=== PATIENT | female | born 1990 | race Caucasian/White ===

== ENCOUNTER 2023-08-08 11:15 | Outpatient (RCR) | payer OTHER, SELFPAY ==
--- NOTE | 2023-05-18 14:35 | OPREHPOC ---
Outpatient Therapy Plan of Care This is a Multidisciplinary Plan of Care that may contain components documented by all disciplines (PT, OT, and ST.) PT Problem 1 PT Problem #1 Knowledge Deficit PT Goal 1 Goal *indep with HEP * correct body mechanics with fitness activities PT Problem 2 PT Problem #2 Pain PT Goal 1 Goal 1* pain rating R knee at worst 2/10 2* pain rating R foot at worst 5/10 3* self assessment with LE functional scale rating of 20 % limitation in activity PT Problem 3 PT Problem #3 Impaired Range of Motion PT Goal 1 Goal improve hip flexibility to improve position of hips and trunk 1* supine R hip flexion 120' 2* supine L hip flexion 120' 3* supine L piriformis stretch pt reports same tightness as R 4* supine hamstring length with SLR R 80' 5* supine hamstring length with SLR L 75' no pain reported with stretch: 6* supine R hip flexion 7* supine L hip flexion PT Problem 4 PT Problem #4 Impaired Strength PT Goal 1 Goal pt maintain good trunk and hip position with 1* running on treadmill 5 minutes 2* simulated fitness and resisted activities
--- NOTE | 2023-05-18 14:35 | PTOPEVAL1 ---
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 Reported Pain Level Pain Score 0,0: Self Report Additional Pain Score Comments pain range of R knee 0-5/10; point to distal patellar tendon pain range of R foot 0-9/10; ball of foot increase pain: running; decrease pain: ice, foam roller, rest no issues with sleeping; walking is OK; did have landin splints few months ago, but eased. uses heat a lot on her back--intermittent back pain Assessment PT Clinical Summary Martha has the diagnosis of R leg and knee pain, increases with running. Her history includes intermittent pain in back, neck, pelvic pain, overactive bladder, constipation. She is very active with running, cycling, resistance/weight exercises. LE functional scale self assessment score of 33% limitation in activity level. With the evaluation: she has tightness over R and L hip flexion with both increasing anterior hip pain; both hamstring tightness L more than R; L piriformis; poor standing position of LE's with bilateral hip adduction and R femur internal rotation; tenderness over sacrum; poor sitting posture with hips IR and lower leg abduction with forefoot adduction. R knee pain reported over distal patellar tendon and R foot pain is at the ball of her foot with running. She may require pelvic
--- NOTE | 2023-06-06 10:21 | PCPTNOTE ---
Patient called to cancel, just unable to make it today.
--- NOTE | 2023-06-15 08:54 | PCPTNOTE ---
Pt NS visit today due to running late.
--- NOTE | 2023-06-26 09:06 | PTOPPROG ---
Assessment and note entered by Bridget Dai, PT Progress Information Assessment Status Progress Diagnosis R LE pain- knee strain, foot pain Onset February 2023 Subjective Information getting better- less L front of groin pain; plantar fascia is about the same; have changed sleep position and using pillow between knees; doing exercises and little sore after that; stretches and manipulation are helping; have not been running for exercises; at gym- Assessment PT Clinical Summary Martha has received 7 PT sessions. Compared to the initial evaluation: pain rating of R knee and foot have decreased at worst on R knee 0-5/10 to 0-2/10 and R foot 0-9/10 to 0-2/10; back pain 2-6/10; self assessment LE functional scale of 33% to 32% limitation; increase flexibility of bilateral hamstrings; supine R hip flexion no longer painful ; supine L hip flexion and IR still increase anterior hip pain; increase strength of trunk; able to run on treadmill at 4.1 mph x 9 minutes without an increase in back or knee pain; The goals were partially met. Continue PT treatment with emphasis on low back/ lumbar-sacral pain, with progression of HEP and return to fitness activities at gym and running. Plan of Care Interventions Electrical Stimulation,Hot Pack/Cold Pack,Manual Therapy,Neuro Re-education,Patient Education,Therapeutic Activities,Therapeutic Exercise,Ultrasound,Other Other Interventions taping PT Services Indicated Yes Treatment Frequency and 1x/wk for 6 more visits Duration These treatments will address the objective and functional deficits as defined above. The patient will be advanced safely and appropriately in order for the patient to progress towards his/her prior level of function. Additional exercises will be introduced and as well as a comprehensive home exercise program upon discharge, if needed, ?to ensure carryover of functional gains achieved in the clinic. This treatment plan has been reviewed and agreement upon by the patient.
--- NOTE | 2023-07-18 16:31 | PCPTNOTE ---
Pt rescheduled this date.
--- NOTE | 2023-07-21 10:50 | PCPTNOTE ---
pt called and canceled today's appt due to having a migraine.
--- NOTE | 2023-08-02 15:20 | PCPTNOTE ---
Canceled because she just cant make it
--- NOTE | 2023-08-16 08:58 | PCPTNOTE ---
pt did not show for today's reeval. called her and she forgot appt. discharge PT discussed and pt agreed.
--- NOTE | 2023-08-16 09:02 | PTOPDC ---
Assessment and note entered by Bridget Dai, PT Discharge Report Assessment Status Discharge - Pt Not Present Diagnosis R LE pain- knee strain, foot pain Onset February 2023 Subjective Information pt did not show for today's reevaluation appointment. I called her and she stated she forgot about appointment. She is doing better, returned to running 20-30 minutes, 2-3 x/week without any issues. Is progressing her activity and running. She agreed to d/c PT. Assessment PT Clinical Summary Martha has received a total of 12 PT sessions, from May 17 to August 07. She called/ canceled 3 and did not show for 2 appointments. Discharge PT, per above phone conversation with pt. The goals were not addressed. Plan of Care PT Services Indicated No
== END 2023-08-16 10:28 | disposition home or self-care (01) ==
LOC: ANHPT 11:15
PROVIDERS: PCP Family Medicine; Visit Provider Family Medicine
DX: M25.561 Pain in right knee (principal); M72.2 Plantar fascial fibromatosis
CPT/HCPCS: 97035; 97110; 97140; 97162; 97530; 99199

== ENCOUNTER 2023-08-09 00:33 | Day surgery (SDC) | payer OTHER, SELFPAY ==
[2023-07-28 10:15] VITALS: BMI 23.4
[2023-08-09 12:56] VITALS: BP 110/74; PULSE 63; RESP 16; TEMP 36.3; O2SAT 100
[2023-08-09] MEDS: LACTATED RINGERS 1,000 ML 150 ML IV CONT (13:04)
--- NOTE | 2023-08-09 13:21 | P.PNAN_ITS ---
Anes - Initial Pre Proc Eval Procedure: Operation Date: 08/09/23 14:30 Proposed Procedures p Esophagogastroduodenoscopy & Colonoscopy - Jasen Sanchez MD Date/Time: 08/09/23 13:21 Surgeon: Jasen Sanchez MD Pre Op Diagnosis: Abdominal distention gaseous, Intestinal methanoge Patient Data Age: 33 Gender: F Height: 1.63 m Weight: 60.5 kg Last Vital Signs Temp 97.4 F L 08/09/23 12:56 Pulse 63 08/09/23 12:56 Resp 16 08/09/23 12:56 BP 110/74 08/09/23 12:56 Pulse Ox 100 08/09/23 12:56 O2 Del Method Room Air 08/09/23 12:56 Allergies Allergy/AdvReac Type Severity Reaction Status Date / Time No Known Allergies Allergy Verified 08/09/23 12:55 Home Medications Medication Instructions Recorded Confirmed Type buspirone 15 mg tablet 15 mg PO BID 05/18/23 07/28/23 History cetirizine 10 mg capsule (All Day 10 mg PO DAILY 05/18/23 08/09/23 History Allergy (cetirizine)) famotidine 10 mg tablet 10 mg PO DAILY 05/18/23 07/28/23 History fluoxetine 20 mg capsule 20 mg PO DAILY 05/18/23 07/28/23 History neomycin 500 mg tablet 07/28/23 History rifaximin 550 mg tablet (Xifaxan) 550 mg PO TID 07/28/23 07/28/23 History Patient hx anesthesia problems: none Family hx anesthesia problems: none Results Review: All pre-operative results and documents have been reviewed as part of the pre- operative evaluation. [facility] Past Medical History Medical History Fatigue Hematuria Hyperlipemia IBS (irritable bowel syndrome) Plantar fascial fibromatosis Social History Social History Smoking status: Unknown if ever smoked Alcohol intake: current Drinks per week: 3 Spiritual care concerns: No Anes - Eval Final PreProcedure Day of Procedure 08/09/23 13:21 Patient weight: normal Heart: regular rate and rhythm Lungs: clear to auscultation Airway: Mallampati scale class II Neurological: alert and oriented Last oral intake: >/= 8 hours ASA classification: II Emergent: no Anesthetic plan: proceed Anesthesia type and monitoring: general GIVS and standard monitoring Results Review: All pre-operative results and documents have been reviewed as part of the pre- operative evaluation. Informed Consent: The patient's anesthetic plan and its attendant risks and benefits were discussed with the patient/family/POA. Questions were solicited and answers provided to the satisfaction of the patient/family/POA.
--- NOTE | 2023-08-09 13:49 | PM.HPGS ---
History of Present Illness History of Present Illness Consent: Risks, benefits, and alternatives have been discussed and questions answered. Patient agrees to proceed with procedure. Chief complaint: Abdominal distention gaseous, Intestinal methanoge Narrative: Martha Fan is a 33 year old female here for first egd and colonoscopy, she had TRIO breath test completed and showed IMO- completed treatment with abx and feeling better, also h/o constipation. Review of Systems Review of Systems: All systems reviewed & are unremarkable except as noted in HPI and below PMFSH Past Medical History Medical History Fatigue Hematuria Hyperlipemia IBS (irritable bowel syndrome) Plantar fascial fibromatosis Social History Social History Smoking status: Unknown if ever smoked Alcohol intake: current Drinks per week: 3 Spiritual care concerns: No Meds Home Medications and Allergies Home Medications Medication Instructions Recorded Confirmed Type buspirone 15 mg tablet 15 mg PO BID 05/18/23 07/28/23 History cetirizine 10 mg capsule (All Day 10 mg PO DAILY 05/18/23 08/09/23 History Allergy (cetirizine)) famotidine 10 mg tablet 10 mg PO DAILY 05/18/23 07/28/23 History fluoxetine 20 mg capsule 20 mg PO DAILY 05/18/23 07/28/23 History neomycin 500 mg tablet 07/28/23 History rifaximin 550 mg tablet (Xifaxan) 550 mg PO TID 07/28/23 07/28/23 History Allergies Allergy/AdvReac Type Severity Reaction Status Date / Time No Known Allergies Allergy Verified 08/09/23 12:55 Vital Signs Vital Signs - 24 hr 08/09/23 12:56 Temperature 97.4 F L Pulse Rate 63 Respiratory Rate 16 Blood Pressure 110/74 Pulse Oximetry 100 Oxygen Delivery Room Air Exam Const: General: comfortable and no acute distress HENMT: Face/Nose/Sinus: Normal nares present Eyes: General: appearance normal, both eyes and all related structures Neck: Neck: no JVD Resp: Auscultation: clear to auscultation bilaterally Cardio: Rate: regular rate Rhythm: regular rhythm GI: Inspection: non-distended GI Palp: Yes Soft to palpation Skin: General skin exam: normal color Neuro: General: gait normal Speech: normal speech Extrem: General: normal to inspection Psych: Mental Status: mental status grossly normal Assessment and Plan Assessment and plan (1) Bloating: Code(s): R14.0 - Abdominal distension (gaseous) Status: Acute Assessment and Plan: egd with bx (2) Chronic constipation: Code(s): K59.09 - Other constipation Status: Acute Assessment and Plan: constipation (3) Flatulence: Code(s): R14.3 - Flatulence Status: Acute (4) Postprandial abdominal bloating: Code(s): R14.0 - Abdominal distension (gaseous) Status: Acute (5) Intestinal methanogen overgrowth: Code(s): 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
--- NOTE | 2023-08-09 14:02 | SUR.OPER ---
EGD: [id number] COLON: Start 1409
[2023-08-09 14:17] VITALS: BP 96/48; PULSE 69; RESP 23; O2SAT 100
[2023-08-09 14:27] VITALS: BP 97/57; PULSE 63; RESP 22; O2SAT 100
[2023-08-09 14:37] VITALS: BP 115/74; PULSE 66; RESP 17; O2SAT 100
== END 2023-08-09 14:51 | disposition home or self-care (01) ==
PROVIDERS: PCP Family Medicine; Referring Provider Nurse Practitioner; Visit Provider Internal Medicine Gastroenterology
PROC: 0DJ08ZZ Inspection of Upper Intestinal Tract, Via Natural or Artificial Opening Endoscopic (ICD-10-PCS; CPT 43235; principal; 2023-08-09 14:30)
DX: K29.50 Unspecified chronic gastritis without bleeding (principal); E78.5 Hyperlipidemia, unspecified; K59.09 Other constipation; K63.82 Intestinal microbial overgrowth
CPT/HCPCS: 45378; 43239; 88305; J2001; J2405; J2704; J3010; J7120